=== PATIENT | male | born 1980 | race Caucasian/White ===

== ENCOUNTER 2017-08-27 20:58 | Emergency (ER) | payer OTHER ==
[~2017-08-27] VITALS: Ht 170.2 cm; Wt 60.0 kg
[2017-08-27 21:00] VITALS: BP 165/105; PULSE 112; RESP 16; TEMP 98.2; O2SAT 99
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
[2017-08-27] MEDS ORDERED: CYCL10TA PO (22:05)
[2017-08-27] MEDS ORDERED: DICL75TA PO (22:05)
[2017-08-27] MEDS ORDERED: CYCLOBENZAPRINE HCL 10 MG TAB PO ONE (22:15)
[2017-08-27] MEDS ORDERED: NAPROXEN 500 MG TAB PO ONE (22:15)
== END 2017-08-28 01:14 | disposition home or self-care (01) ==
LOC: NEPD 20:58
DX: S09.90XA Unspecified injury of head, initial encounter (principal); M54.2 Cervicalgia; Z87.81 Personal history of (healed) traumatic fracture; Z72.0 Tobacco use; Z88.0 Allergy status to penicillin; V19.3XXA Pedal cyclist (driver) (passenger) injured in unspecified nontraffic accident, initial encounter; Y93.55 Activity, bike riding
CPT/HCPCS: 70450; 72125; 99285